=== PATIENT | male | born 1960 | race Caucasian/White ===

== ENCOUNTER 2020-06-20 18:43 | Emergency (ER) | payer OTHER ==
[2020-06-20 19:37] VITALS: BP 149/70; PULSE 58; TEMP 98; BMI 49.0
[2020-06-20] MEDS ORDERED: KETOROLAC TROMETHAMINE 60 MG/2 ML VIAL IM ONE (20:21)
[2020-06-20] MEDS ORDERED: KETOROLAC TROMETHAMINE 60 MG/2 ML VIAL ONE (20:22)
== END 2020-06-20 20:30 | disposition home or self-care (01) ==
LOC: FER 18:43
PROC: 3E0233Z Introduction of Anti-inflammatory into Muscle, Percutaneous Approach (ICD-10-PCS; principal; 2020-06-20)
DX: S73.102A Unspecified sprain of left hip, initial encounter (principal)
CPT/HCPCS: 99284-25

== ENCOUNTER 2020-08-15 09:09 | Inpatient (IN) | payer BC, OTHER ==
[2020-08-15 09:23] VITALS: BMI 48.9
[2020-08-15 10:37] LABS: LDH 425 U/L (87-246)
[2020-08-15 10:53] LABS: BASO % 0.2 % (0-2.0); HEMATOCRIT 44.3 % (35.4-49); HEMOGLOBIN 14.5 GM/dL (11.7-16.9); LYMPH % 7.3 % (8-40); MCH 27.7 pg (25.7-33.7); MCHC 32.8 g/dl (32.0-35.9); MEAN CELL VOLUME 84.4 fl (80-96); MEAN PLT VOLUME 8.3 fl (7.5-11.1); MONO % 8.1 % (3.8-10.2); NEUT % 84.4 % (42.8-82.8); PLATELET COUNT 297 K/MM3 (134-434); RBC 5.26 M/mm3 (4.00-5.60); RDW 15.6 % (11.9-15.9); WHITE BLOOD COUNT 10.4 K/mm3 (4.0-10.0)
[2020-08-15 11:04] LABS: CHLORIDE 106 mmol/L (98-107); POTASSIUM 4.8 mmol/L (3.5-5.1); SODIUM 142 mmol/L (136-145)
[2020-08-15 11:06] LABS: CALCIUM 8.6 mg/dL (8.5-10.1)
[2020-08-15 11:07] LABS: ALBUMIN 2.9 g/dl (3.4-5.0); ANION GAP 10 MMOL/L (8-16); BLOOD UREA NITROGEN 31.1 mg/dL (7-18); CO2 26 mmol/L (21-32); GLUCOSE,RANDOM 118 mg/dL (74-106)
[2020-08-15 11:11] LABS: CREATININE 1.4 mg/dL (0.55-1.3); SGOT/AST 49 U/L (15-37); SGPT/ALT 76 U/L (13-61)
[2020-08-15 11:12] LABS: TOT PROT 7.5 g/dl (6.4-8.2)
[2020-08-15 11:13] LABS: ALK PHOS 45 U/L (45-117)
[2020-08-15] MEDS ORDERED: ACETAMINOPHEN 325 MG TABLET (FP) PO ONE (11:13)
[2020-08-15] MEDS ORDERED: LACTATED RINGERS SOLUTION 1000 ML INFUS.BAG IV ONE (11:13)
[2020-08-15] MEDS ORDERED: DEXAMETHASONE SOD PHOSPHATE 4 MG/1 ML VIAL IVPUSH ONE (11:27)
[2020-08-15] MEDS ORDERED: ASPIRIN 81 MG CHEWABLE TABLETS PO ONE (11:55)
[2020-08-15] MEDS ORDERED: SODIUM CHLORIDE 0.9% 500 ML INFUS.BAG IV ONE (12:03)
[2020-08-15] MEDS ORDERED: ZINC SULFATE 220 MG CAPSULE (FP) ONE (12:33)
[2020-08-15] MEDS ORDERED: ACETAMINOPHEN 325 MG TABLET (FP) ONE (12:33)
[2020-08-15] MEDS ORDERED: FAMOTIDINE 20 MG TABLET ONE (12:33)
[2020-08-15] MEDS ORDERED: ASPIRIN 81 MG CHEWABLE TABLETS ONE (12:33)
[2020-08-15] MEDS ORDERED: ENOXAPARIN NA (PORCINE) 40 MG/0.4 ML DISP.SYRIN SQ ONE (12:33)
[2020-08-15] MEDS ORDERED: DEXAMETHASONE SOD PHOSPHATE 10 MG/1 ML VIAL ONE (12:33)
[2020-08-15] MEDS ORDERED: CEFTRIAXONE 1 GM/50 ML BAG ONE (12:33)
[2020-08-15] MEDS: ENOXAPARIN NA (PORCINE) 40 MG/0.4 ML DISP.SYRIN SQ SCH (12:40)
[2020-08-15] MEDS: FAMOTIDINE 20 MG TABLET PO SCH (12:40)
[2020-08-15] MEDS: ZINC SULFATE 220 MG CAPSULE (FP) PO SCH (12:40)
[2020-08-15] MEDS: CEFTRIAXONE 1 GM in DEXTROSE 5%-WATER - 50 ML IVPB SCH (12:40)
[2020-08-15] MEDS: ASCORBIC ACID 500 MG TABLET (FP) PO SCH ×2 (12:41→22:03)
[2020-08-15] MEDS ORDERED: ASCORBIC ACID 500 MG TABLET (FP) ONE (12:41)
[2020-08-15] MEDS ORDERED: REMDESIVIR 200 MG in SODIUM CHLORIDE 210 ML IVPB ONE (14:34)
[2020-08-15] MEDS ORDERED: ALBUTEROL SO4 HFA INHALER IH PRN (14:37)
[2020-08-15 17:11] LABS: INR 1.14 (0.83-1.09); PROTHROMBIN TIME (PATIENT) 13.7 SEC (9.7-13.0)
[2020-08-15] MEDS ORDERED: CHOLECALCIFEROL (VIT D3) 1,000 UNIT (25 MCG) TABLET ONE (18:33)
[2020-08-15] MEDS: CHOLECALCIFEROL (VIT D3) 1,000 UNIT (25 MCG) TABLET PO SCH (18:45)
[2020-08-15] MEDS: BUDESONIDE/FORMETEROL FUMARATE 160/4.5 mcg INHALER IH SCH (22:05)
[2020-08-16] MEDS ORDERED: cefTRIAXone SODIUM 1 GM VIAL ONE (08:23)
[2020-08-16] MEDS ORDERED: DEXTROSE 5%-WATER - 50 ML IVPB ONE (08:23)
[2020-08-16] MEDS: DEXAMETHASONE SOD PHOSPHATE 4 MG/1 ML VIAL IVPUSH SCH (08:59)
[2020-08-16] MEDS: CEFTRIAXONE 1 GM in DEXTROSE 5%-WATER - 50 ML IVPB SCH (09:00)
[2020-08-16] MEDS: ASCORBIC ACID 500 MG TABLET (FP) PO SCH ×3 (09:01→22:10)
[2020-08-16] MEDS: FAMOTIDINE 20 MG TABLET PO SCH (09:01)
[2020-08-16] MEDS: BUDESONIDE/FORMETEROL FUMARATE 160/4.5 mcg INHALER IH SCH ×3 (09:01→22:09)
[2020-08-16] MEDS: CHOLECALCIFEROL (VIT D3) 1,000 UNIT (25 MCG) TABLET PO SCH (09:01)
[2020-08-16] MEDS: ZINC SULFATE 220 MG CAPSULE (FP) PO SCH (09:01)
[2020-08-16] MEDS: ENOXAPARIN NA (PORCINE) 40 MG/0.4 ML DISP.SYRIN SQ SCH (09:01)
[2020-08-16] MEDS ORDERED: AZITHROMYCIN IVPB 500 MG/250 ML BAG IVPB SCH (11:30)
[2020-08-16] MEDS: ALBUTEROL SO4 HFA INHALER IH SCH ×3 (12:08→20:39)
[2020-08-16] MEDS ORDERED: ENOXAPARIN NA (PORCINE) 80 MG/0.8 ML DISP.SYRIN SQ ONE (13:25)
[2020-08-16] MEDS: REMDESIVIR 100 MG in SODIUM CHLORIDE 230 ML IVPB SCH (16:05)
[2020-08-16] MEDS ORDERED: PT OWN MED DRAWER 7, Y5N ONE (20:24)
[2020-08-16] MEDS: ENOXAPARIN NA (PORCINE) 120 MG/0.8 ML DISP.SYRIN SQ SCH ×2 (20:40→22:09)
[2020-08-16] MEDS ORDERED: ATORVASTATIN CA 20 MG TABLET (FP) PO SCH (22:00)
[2020-08-17 03:04] LABS: EPI CELLS 5 /uL (0-25.1); HYALINE CASTS 0 /uL (0-3.1); PH,URINE 5.5 (5.0-8.0); URINE APPEARANCE CLEAR; URINE BACTERIA 21 /uL (0-1359); URINE BILIRUBIN NEGATIVE (NEGATIVE); URINE COLOR YELLOW; URINE GLUCOSE (UA) NEGATIVE (NEGATIVE); URINE KETONE NEGATIVE (NEGATIVE); URINE LEUK ESTERASE NEGATIVE (NEGATIVE); URINE NITRITE NEGATIVE (NEGATIVE); URINE PROTEIN 1+ (NEGATIVE); URINE RBC 5 /uL (0-23.9); URINE WBC 3 /uL (0-25.8)
[2020-08-17 08:34] LABS: BASO % 0.1 % (0-2.0); HEMOGLOBIN 13.5 GM/dL (11.7-16.9); LYMPH % 8.2 % (8-40); MCH 28.5 pg (25.7-33.7); MCHC 33.7 g/dl (32.0-35.9); MEAN CELL VOLUME 84.4 fl (80-96); MEAN PLT VOLUME 8.6 fl (7.5-11.1); MONO % 6.3 % (3.8-10.2); NEUT % 85.4 % (42.8-82.8); PLATELET COUNT 315 K/MM3 (134-434); RBC 4.74 M/mm3 (4.00-5.60); RDW 15.9 % (11.9-15.9); WHITE BLOOD COUNT 11.3 K/mm3 (4.0-10.0)
[2020-08-17 08:43] LABS: POTASSIUM 4.9 mmol/L (3.5-5.1)
[2020-08-17 08:45] LABS: CALCIUM 8.5 mg/dL (8.5-10.1)
[2020-08-17 08:47] LABS: ALBUMIN 2.6 g/dl (3.4-5.0); BLOOD UREA NITROGEN 38.6 mg/dL (7-18)
[2020-08-17 08:50] LABS: CREATININE 1.2 mg/dL (0.55-1.3)
[2020-08-17 08:51] LABS: BILIRUBIN,TOTAL 0.7 mg/dL (0.2-1); TOT PROT 6.6 g/dl (6.4-8.2)
[2020-08-17] MEDS ORDERED: ENOXAPARIN NA (PORCINE) 120 MG/0.8 ML DISP.SYRIN SQ SCH (10:00)
[2020-08-17] MEDS: ZINC SULFATE 220 MG CAPSULE (FP) PO SCH (10:35)
[2020-08-17] MEDS: ASCORBIC ACID 500 MG TABLET (FP) PO SCH ×2 (10:35→21:28)
[2020-08-17] MEDS: ALBUTEROL SO4 HFA INHALER IH SCH ×4 (10:35→21:27)
[2020-08-17] MEDS: BUDESONIDE/FORMETEROL FUMARATE 160/4.5 mcg INHALER IH SCH ×2 (10:36→21:27)
[2020-08-17] MEDS: FAMOTIDINE 20 MG TABLET PO SCH (10:36)
[2020-08-17] MEDS: CHOLECALCIFEROL (VIT D3) 1,000 UNIT (25 MCG) TABLET PO SCH (10:36)
[2020-08-17] MEDS: ENOXAPARIN NA (PORCINE) 120 MG/0.8 ML DISP.SYRIN SQ SCH ×2 (10:36→21:28)
[2020-08-17] MEDS: DEXAMETHASONE SOD PHOSPHATE 4 MG/1 ML VIAL IVPUSH SCH (10:47)
[2020-08-17 10:56] LABS: ANISOCYTOSIS 1+; MACROCYTOSIS 1+; PLATELET ESTIMATE NORMAL
[2020-08-17] MEDS: REMDESIVIR 100 MG in SODIUM CHLORIDE 230 ML IVPB SCH (15:23)
[2020-08-18 07:51] LABS: BASO % 0.4 % (0-2.0); HEMATOCRIT 42.8 % (35.4-49); HEMOGLOBIN 14.2 GM/dL (11.7-16.9); LYMPH % 7.6 % (8-40); MCH 27.7 pg (25.7-33.7); MCHC 33.2 g/dl (32.0-35.9); MEAN CELL VOLUME 83.6 fl (80-96); MEAN PLT VOLUME 8.4 fl (7.5-11.1); MONO % 4.8 % (3.8-10.2); NEUT % 87.2 % (42.8-82.8); PLATELET COUNT 344 K/MM3 (134-434); RBC 5.12 M/mm3 (4.00-5.60); RDW 15.9 % (11.9-15.9); WHITE BLOOD COUNT 11.5 K/mm3 (4.0-10.0)
[2020-08-18] MEDS: ALBUTEROL SO4 HFA INHALER IH SCH ×4 (08:00→21:05)
[2020-08-18 08:07] LABS: POTASSIUM 4.7 mmol/L (3.5-5.1)
[2020-08-18 08:14] LABS: CALCIUM 8.5 mg/dL (8.5-10.1)
[2020-08-18 08:15] LABS: ALBUMIN 2.8 g/dl (3.4-5.0)
[2020-08-18 08:18] LABS: CREATININE 1.2 mg/dL (0.55-1.3)
[2020-08-18 08:19] LABS: BILIRUBIN,TOTAL 0.6 mg/dL (0.2-1)
[2020-08-18] MEDS: DEXAMETHASONE SOD PHOSPHATE 4 MG/1 ML VIAL IVPUSH SCH (10:10)
[2020-08-18] MEDS: ZINC SULFATE 220 MG CAPSULE (FP) PO SCH (10:11)
[2020-08-18] MEDS: FAMOTIDINE 20 MG TABLET PO SCH (10:11)
[2020-08-18] MEDS: ENOXAPARIN NA (PORCINE) 120 MG/0.8 ML DISP.SYRIN SQ SCH ×2 (10:11→21:05)
[2020-08-18] MEDS: CHOLECALCIFEROL (VIT D3) 1,000 UNIT (25 MCG) TABLET PO SCH (10:12)
[2020-08-18] MEDS: ASCORBIC ACID 500 MG TABLET (FP) PO SCH ×2 (10:12→21:06)
[2020-08-18] MEDS: BUDESONIDE/FORMETEROL FUMARATE 160/4.5 mcg INHALER IH SCH ×2 (10:14→21:05)
[2020-08-18 11:54] LABS: PLATELET ESTIMATE NORMAL
[2020-08-18 12:59] LABS: OVALOCYTE 1+; ROULEAU 1+
[2020-08-18] MEDS: REMDESIVIR 100 MG in SODIUM CHLORIDE 230 ML IVPB SCH (15:07)
[2020-08-18] MEDS ORDERED: ACETAMINOPHEN 325 MG TABLET (FP) PO PRN (18:38)
[2020-08-18] MEDS ORDERED: PT OWN MED DRAWER 7, Y5N ONE (20:10)
[2020-08-19 07:51] LABS: BASO % 0.5 % (0-2.0); EOS % 0.2 % (0-4.5); HEMATOCRIT 42.7 % (35.4-49); HEMOGLOBIN 14.1 GM/dL (11.7-16.9); LYMPH % 8.8 % (8-40); MCH 27.6 pg (25.7-33.7); MEAN CELL VOLUME 83.5 fl (80-96); MEAN PLT VOLUME 8.4 fl (7.5-11.1); MONO % 7.3 % (3.8-10.2); NEUT % 83.2 % (42.8-82.8); PLATELET COUNT 324 K/MM3 (134-434); RBC 5.11 M/mm3 (4.00-5.60); RDW 15.8 % (11.9-15.9); WHITE BLOOD COUNT 11.5 K/mm3 (4.0-10.0)
[2020-08-19] MEDS: ALBUTEROL SO4 HFA INHALER IH SCH ×4 (08:00→21:13)
[2020-08-19 08:22] LABS: POTASSIUM 4.9 mmol/L (3.5-5.1)
[2020-08-19 08:24] LABS: ALBUMIN 2.6 g/dl (3.4-5.0); BLOOD UREA NITROGEN 38.8 mg/dL (7-18); CALCIUM 8.3 mg/dL (8.5-10.1)
[2020-08-19 08:28] LABS: CREATININE 1.2 mg/dL (0.55-1.3)
[2020-08-19 08:29] LABS: BILIRUBIN,TOTAL 0.5 mg/dL (0.2-1); TOT PROT 6.6 g/dl (6.4-8.2)
[2020-08-19 09:40] LABS: ANISOCYTOSIS 1+; MACROCYTOSIS 0; PLATELET ESTIMATE NORMAL
[2020-08-19] MEDS: ASCORBIC ACID 500 MG TABLET (FP) PO SCH ×2 (10:38→21:14)
[2020-08-19] MEDS: FAMOTIDINE 20 MG TABLET PO SCH (10:38)
[2020-08-19] MEDS: DEXAMETHASONE SOD PHOSPHATE 4 MG/1 ML VIAL IVPUSH SCH (10:38)
[2020-08-19] MEDS: amLODIPine BESYLATE 5 MG TABLET (FP) PO SCH (10:38)
[2020-08-19] MEDS: ENOXAPARIN NA (PORCINE) 120 MG/0.8 ML DISP.SYRIN SQ SCH ×2 (10:39→21:13)
[2020-08-19] MEDS: ZINC SULFATE 220 MG CAPSULE (FP) PO SCH (10:39)
[2020-08-19] MEDS: BUDESONIDE/FORMETEROL FUMARATE 160/4.5 mcg INHALER IH SCH ×2 (10:41→21:14)
[2020-08-19] MEDS: CHOLECALCIFEROL (VIT D3) 1,000 UNIT (25 MCG) TABLET PO SCH (10:41)
[2020-08-19] MEDS: REMDESIVIR 100 MG in SODIUM CHLORIDE 230 ML IVPB SCH (15:31)
[2020-08-19] MEDS ORDERED: PT OWN MED DRAWER 7, Y5N ONE (20:37)
[2020-08-20 07:23] LABS: BASO % 0.3 % (0-2.0); EOS % 0.4 % (0-4.5); HEMATOCRIT 43.4 % (35.4-49); HEMOGLOBIN 14.3 GM/dL (11.7-16.9); LYMPH % 8.8 % (8-40); MCH 27.8 pg (25.7-33.7); MEAN CELL VOLUME 84.1 fl (80-96); MEAN PLT VOLUME 8.7 fl (7.5-11.1); MONO % 6.8 % (3.8-10.2); NEUT % 83.7 % (42.8-82.8); PLATELET COUNT 360 K/MM3 (134-434); RBC 5.16 M/mm3 (4.00-5.60); WHITE BLOOD COUNT 11.5 K/mm3 (4.0-10.0)
[2020-08-20 07:41] LABS: POTASSIUM 4.7 mmol/L (3.5-5.1)
[2020-08-20 07:59] LABS: ALBUMIN 2.8 g/dl (3.4-5.0); BILIRUBIN,TOTAL 0.5 mg/dL (0.2-1); BLOOD UREA NITROGEN 40.2 mg/dL (7-18); CALCIUM 8.3 mg/dL (8.5-10.1); CREATININE 1.1 mg/dL (0.55-1.3); TOT PROT 6.8 g/dl (6.4-8.2)
[2020-08-20] MEDS: ALBUTEROL SO4 HFA INHALER IH SCH ×3 (09:28→16:23)
[2020-08-20] MEDS: ENOXAPARIN NA (PORCINE) 120 MG/0.8 ML DISP.SYRIN SQ SCH (09:29)
[2020-08-20] MEDS: FAMOTIDINE 20 MG TABLET PO SCH (09:29)
[2020-08-20] MEDS: BUDESONIDE/FORMETEROL FUMARATE 160/4.5 mcg INHALER IH SCH (09:29)
[2020-08-20] MEDS: amLODIPine BESYLATE 5 MG TABLET (FP) PO SCH (09:29)
[2020-08-20] MEDS: ZINC SULFATE 220 MG CAPSULE (FP) PO SCH (09:29)
[2020-08-20] MEDS: CHOLECALCIFEROL (VIT D3) 1,000 UNIT (25 MCG) TABLET PO SCH (09:29)
[2020-08-20] MEDS: ASCORBIC ACID 500 MG TABLET (FP) PO SCH (09:29)
[2020-08-20 09:48] LABS: ANISOCYTOSIS 0; MACROCYTOSIS 0; PLATELET ESTIMATE NORMAL
[2020-08-20] MEDS: DEXAMETHASONE SOD PHOSPHATE 4 MG/1 ML VIAL IVPUSH SCH (11:36)
[2020-08-20 14:19] VITALS: BP 107/57; PULSE 55; TEMP 98
[2020-08-20] MEDS ORDERED: DEXAMETHASONE 4 MG TABLET (FP) PO SCH (14:45)
== END 2020-08-20 18:46 | disposition home or self-care (01) | DRG 177 ==
LOC: JER 09:09 → JERBED 10:45 → J8W 23:32 → J7W 08-16 20:46
PROVIDERS: ATTEND Internal Medicine
PROC: XW033E5 Introduction of Remdesivir Anti-infective into Peripheral Vein, Percutaneous Approach, New Technology Group 5 (ICD-10-PCS; principal; 2020-08-15)
DX: U07.1 COVID-19 (principal); J96.01 Acute respiratory failure with hypoxia; J12.82 Pneumonia due to coronavirus disease 2019; Z68.41 Body mass index [BMI] 40.0-44.9, adult; N17.9 Acute kidney failure, unspecified; E78.5 Hyperlipidemia, unspecified; I10 Essential (primary) hypertension; E66.01 Morbid (severe) obesity due to excess calories; R74.01 Elevation of levels of liver transaminase levels; E86.0 Dehydration
CPT/HCPCS: 36415; 71045-TC-FY; 80053; 81003; 82436; 82550; 82553; 82565; 82728; 83615; 84133; 84156; 84300; 84484; 85025; 85379; 85610; 86140; 86769; 86850; 86900; 86901; 93005; 93010; 94761; 99285-25; C9399; C9803; U0003

== ENCOUNTER → 2021-07-06 | Emergency (ER) | payer OTHER ==
[2021-07-06 22:26] VITALS: BP 160/94; PULSE 61; TEMP 98; BMI 44.6
== END ==
LOC: JER 21:49
DX: I10 Essential (primary) hypertension (principal)
CPT/HCPCS: 99281-25